=== PATIENT | male | born 2005 | race Caucasian/White ===

== ENCOUNTER 2025-08-13 22:24 | Emergency (ER) | payer OTHER, SELFPAY ==
[2025-08-13 22:26] VITALS: BP 119/73; PULSE 75; RESP 18; TEMP 37.1; O2SAT 100; BMI 17.3
[2025-08-13] MEDS: Lidocaine 2% Viscous15 ML UDC 15 ML PO (22:52)
--- NOTE | 2025-08-13 23:08 | EX.ED.DYSGE1 ---
HPI History of Present Illness Chief Complaint: Nausea/Vomiting Narrative Narrative: Patient was seen and examined after presenting to ED for a sore throat states that he sat next to somebody with strep throat yesterday but his throat is hurting today and he got some benzocaine spray from the pharmacy and the second he started that he started having emesis says that he has vomited multiple times since arrival to the emergency department. PFSH PFSH Home Medications Medication Instructions Recorded Last Taken Type ondansetron 4 mg disintegrating 4 mg PO Q8H PRN PRN Nausea #30 tabs 08/13/25 Unknown Rx tablet Allergy/AdvReac Type Severity Reaction Status Date / Time No Known Allergies Allergy Verified 08/13/25 22:29 Social History Smoking Status: Current every day smoker tobacco type: cigarettes ROS ROS ED ROS Narrative Pertinent Positives: Sore throat nausea vomiting Pertinent Negatives: Fevers chills abdominal pain urinary symptoms The remainder of review of systems negative unless otherwise stated in the HPI above. Systems reviewed including constitutional, psychiatric, cardiovascular, respiratory, integument, HENT, gastrointestinal. EXAM Physical Exam Narrative Exam Narrative: Patient is afebrile hemodynamically stable does not appear toxic or in distress he has moist mucous membranes oropharynx fairly unremarkable with no erythema exudates or tonsillar enlargement normal range of motion of his head and neck. Abdomen soft nontender nondistended he is warm and well-perfused Const Vital Signs: 08/13/25 22:26 Temperature 98.8 F Temperature Source Temporal Pulse Rate 75 Respiratory Rate 18 Blood Pressure 119/73 Blood Pressure Mean 88 Pulse Ox 100 Oxygen Delivery Method Room Air MDM MDM MDM Narrative Medical decision making narrative: Nursing notes, triage notes, available previous documentation, and vital signs were reviewed. Any discrepancies noted were addressed. Differential Diagnoses: Low suspicion for strep pharyngitis is most likely a viral process but we will still evaluate for strep does not seem to be gastroenteritis this not a deep space neck infection or meningitis Interventions: Zofran and viscous lidocaine Labs Reviewed: Strep test was negative Previous Documentation Reviewed: None available or applicable at this time. ED Course: Patient presenting with symptoms as stated above strep test is currently pending we will provide a dose of Zofran as well as viscous lidocaine given for any significant findings patient will be discharged with a prescription for Zofran and antibiotics if needed. 2347: Patient is sleeping comfortably in the ER bed he will be discharged return precautions follow-up recommendations he is stable This note was made utilizing voice recognition software. All attempts were made to correct spelling or other errors prior to note completion. However, due to the fast-paced nature of emergency medicine, some errors may still be present. Discharge Plan Triage Chief Complaint: Nausea/Vomiting ED Provider: Edgar Webb Dx/Rx/DC Orders Clinical Impression: Nausea & vomiting, Acute viral pharyngitis Prescriptions: New ondansetron 4 mg tablet,disintegrating 4 mg PO Q8H PRN PRN (Reason: Nausea) Qty: 30 0RF Primary Care Provider: Care Physician,No Primary Referrals: NOT,DEFINED [Non-Staff, None] Print Language: [place] Disposition Disposition: Home, Self Care
[2025-08-13 23:54] VITALS: BP 119/73; PULSE 75; RESP 18; TEMP 37.1; O2SAT 100
== END 2025-08-13 23:56 | disposition home or self-care (01) ==
PROVIDERS: Emergency Provider Specialist/Technologist Athletic Trainer; Visit Provider Specialist/Technologist Athletic Trainer
DX: R11.2 Nausea with vomiting, unspecified (principal); J02.8 Acute pharyngitis due to other specified organisms; F17.210 Nicotine dependence, cigarettes, uncomplicated
CPT/HCPCS: 87651; 99282